=== PATIENT | female | born 1985 | race Caucasian/White ===

== ENCOUNTER 2020-09-26 17:50 | Emergency (ER) | payer OTHER, SELFPAY ==
[2020-09-26 18:05] VITALS: BP 151/74; PULSE 81; RESP 18; TEMP 36.2; O2SAT 98; BMI 28.3
--- NOTE | 2020-09-26 19:03 | US_ITS ---
EXAMINATION: NONINVASIVE ASSESSMENT OF THE ARTERIES OF THE LEFT LOWER EXTREMITY Jaret Corley MD CLINICAL INFORMATION: Left lower extremity pain, numbness and diminished pulses TECHNIQUE: Left lower extremity duplex ultrasound was performed with velocity measurements and waveform analysis in the common femoral arteries, profunda femoris arteries, proximal mid and distal superficial femoral arteries, popliteal arteries and tibial vessels. This study was performed only at rest. COMPARISON: None FINDINGS: Velocities in cm/sec and phasicity as well as the presence of plaque are reported below. LEFT LEG: Minimal plaque is present. Triphasic flow is noted throughout. Common Femoral: 196 Profunda Femoris: 145 Proximal SFA: 152 Mid SFA: 157 Distal SFA: 77 Popliteal: 65 Posterior tibial: 77 Peroneal: 73 US/US arterial duplex LE LT IMPRESSION: There is no evidence of any hemodynamically significant left lower extremity arterial disease by pressure, waveform or duplex Doppler criteria at rest.
--- NOTE | 2020-09-26 19:04 | XR_ITS ---
EXAMINATION: XR ANKLE, LEFT CLINICAL INFORMATION: Pain. COMPARISON: None TECHNIQUE: AP, lateral, and mortise views of the left ankle. FINDINGS: The bones and soft tissues are normal. No fracture. Alignment is anatomic. Joint spaces are maintained. No joint effusion. XR/XR ankle LT min 3V IMPRESSION: Normal left ankle.
[2020-09-26 19:54] LABS: MANUAL DIFF FLAG NO
[2020-09-26 19:56] LABS: Glucose Urine UA NEG (NEG); Leukocyte Esterase Urine NEG (NEG); Nitrite Urine NEG (NEG); Specific Gravity - Urine 1.025 (1.005-1.025); Urine Blood NEG (NEG); Urine Ketones NEG (NEG); Urine Protein NEG (NEG-TRACE)
[2020-09-26 19:58] LABS: Appearance Urine CLEAR; Color Urine YELLOW
[2020-09-26 19:59] LABS: UPreg QC Valid YES; Urine Pregnancy NEGATIVE (NEGATIVE)
[2020-09-26 20:04] LABS: Basophils Percent Auto 0.5 % (0-2); Eosinophils Absolute Auto 0.2 X10*3/uL (0.0-0.4); Eosinophils Percent Auto 2.4 % (0-4); Hematocrit 41.4 % (37-47); Hemoglobin 14.2 g/dl (12.0-16.0); Imm Gran Abs Auto 0.03 X10*3/uL (0.00-0.03); Imm Gran Pct Auto 0.4 % (0.0-0.4); Lymphocytes Absolute Auto 2.6 X10*3/uL (1.2-4.9); Lymphocytes Percent Auto 31.7 % (20-40); Mean Corpuscular HGB Conc 34.3 g/dl (31.0-35.0); Mean Corpuscular Hemoglobin 29.8 pg (27.0-33.0); Mean Platelet Volume 9.3 fL (9.4-12.3); Monocytes Absolute Auto 0.8 X10*3/uL (0.1-1.2); Monocytes Percent Auto 9.8 % (2-11); Neutrophils Absolute Auto 4.5 X10*3/uL (2.0-8.3); Neutrophils Percent Auto 55.2 % (45-73); Platelet Count 257 X10*3/uL (160-400); Red Blood Count 4.76 X10*6/uL (4.20-5.50); Red Cell Distribution Width 12.7 % (11.0-16.0); White Blood Count 8.2 X10*3/uL (4.8-10.8)
[2020-09-26 20:06] LABS: Bacteria Urine 1+ /LPF; Squamous Epithelial Cell Urine 1+ /LPF
[2020-09-26 20:14] LABS: Alanine Aminotransferase 12 U/L (0-31); Albumin Level 4.4 g/dL (3.5-5.0); Alkaline Phosphatase 85 U/L (39-117); Anion Gap 12 (12-20); Aspartate Amino Transferase 15 U/L (5-31); Bilirubin Total 0.2 mg/dL (0.0-1.0); Blood Urea Nitrogen 9 mg/dL (9-16); Calcium 9.3 mg/dL (8.4-10.2); Carbon Dioxide 27 mmol/L (22-29); Chloride 104 mmol/L (96-108); Creatinine Clr Calc Pharmacy 81.2; Estimated Glomerular Filt Rate > 60; Glucose Random 90 mg/dL (60-115); Potassium 4.1 mmol/l (3.3-5.1); Sodium 139 mmol/L (135-145); Total Protein 7.5 g/dL (6.5-8.0)
[2020-09-26 20:38] LABS: Amphetamine Screen Urine Not Detected (Not Detect); Barbiturates, Urine Not Detected (Not Detect); Benzodiazepines Screen Urine Not Detected (Not Detect); Cannabinoid Screen Urine POSITIVE (Not Detect); Cocaine Screen Urine POSITIVE (Not Detect); Opiate Screen Urine POSITIVE (Not Detect); Phencyclidine Screen Urine Not Detected (Not Detect)
--- NOTE | 2020-09-26 20:38 | ED_ITS ---
HPI - Extremity Injury (Lower) General Chief Complaint: Extremity Injury, Lower Stated Complaint: leg numbness Time Seen by Provider: 09/26/20 19:03 Source: patient Mode of arrival: ambulatory Limitations: no limitations History of Present Illness HPI Narrative: 35-year-old female with prior history of substance abuse preferred IV heroin states she has been sober for 2 weeks now from sober house presenting with complaint of left lower extremity numbness/pain. States new 's [place] was her birthday she was upstairs and hit the front of the foot and fell causing injury to the ankle and that was a short-lived pain that resolve. has been having some numbness shooting down from the anterior knee area down foot. Place: home Severity: mild Exacerbating factors: nothing Other symptoms: none Related Data Allergies Allergy/AdvReac Type Severity Reaction Status Date / Time amoxicillin [AMOXICILLIN] Allergy Unknown RASH Verified 09/26/20 18:04 penicillin Allergy Unknown rash Uncoded 03/06/16 00:00 Review of Systems Review of Systems: Constitutional: No Weight loss, No Fever, No Chills, No Night Sweats, No Fatigue, No Malaise ENT/Mouth: No Hearing loss, No Ear Pain, No Nasal Congestion, No Sinus Pain, No Hoarseness, No sore throat, No Rhinorrhea, No Swallowing Difficulty Eyes: No Eye Pain, No Swelling, No Redness, No Foreign Body, No Discharge, No Vision Changes Cardiovascular: No Chest Pain, No SOB, No Dyspnea on Exertion, No Orthopnea, No Edema, No Palpitations Respiratory: No Cough, No Sputum, No Wheezing, No Smoke Exposure, No Dyspnea Gastrointestinal: No Nausea, No Vomiting, No Diarrhea, No Constipation, No abdominal Pain, No Hematochezia, No Melena Genitourinary: no irregular bleeding, No Dysuria, No Urinary Frequency, No Hematuria, No Urinary Incontinence, No Urgency, No Flank Pain, No Urinary Flow Changes, No Hesitancy Musculoskeletal: No joint pain, No Myalgias, No Joint Swelling Skin: No Skin Lesions, No rash Neuro: No Weakness, No Paresthesias, No Loss of Consciousness, No Dizziness, No Headache Psych: No Social Issues Heme/Lymph: No Bruising, No Bleeding,No Lymphadenopathy Endocrine: No Polyuria, No Polydipsia, No Temperature Intolerance Yes all other systems are reviewed and are negative [facility] Past Medical History Medical History (Updated 09/27/20 @ 00:01 by Background Dadhara) Heroin abuse Social History Social History Alcohol intake: never Smoking Status: Never smoker Use of substances other than those prescribed or required for medical reasons: No Advance Directives: No Advance Directives Information Provided: Yes Physical Exam Vital Signs: Vital Signs: Last Vital Signs Temp 97.2 F 09/26/20 18:05 Pulse 81 09/26/20 18:05 Resp 18 09/26/20 18:05 BP 151/74 H 09/26/20 18:05 Pulse Ox 98 09/26/20 18:05 Body Mass Index 28.3 Reviewed Const: General: cooperative and healthy appearing; No acute distress or intoxicated appearing Nutritional Appearance: average body habitus Orientation/consciousness: patient oriented x3 HENMT: Head: Yes normal to inspection Eyes: General: appearance normal, both eyes and all related structures Visual Mccabe: normal visual mccabe by confrontation Neck: Neck: Yes normal visual inspection, No positive Brudzinski's sign, No positive Kernig's sign and No tender Thyroid: Thyroid normal Chest: Chest palpation & inspection: normal inspection of the chest Resp: Effort & Inspection: normal respiratory effort Auscultation: clear to auscultation bilaterally Cardio: Jugular venous distension: no JVD Rhythm: regular rhythm Heart sounds: S1 normal heart sound present and S2 normal heart sound present GI: Inspection: Yes normal to inspection Percussion: Yes normal to percussion Auscultation: normal bowel sounds : General: Yes no CVA tenderness Back/Spine/Pelvis: Back: no CVA tenderness Skin: General skin exam: no rashes or lesions noted Neuro: General: patient oriented x3 Extrem: Other: As old healed IV track schuler in the bilateral upper and lower extremities. Left lower extremity pulse slightly harder this is likely secondary to the vascular changes from IVDA use. General: Yes normal to inspection Course Course Course Narrative: Labs overall stable. X-ray without evidence of fracture ultrasound arterial within normal limits. She did express concern that her mother has history of MS and she developed this and her early 40s she is concerned about this. States her mother had more significant symptoms more consistent with MS. She denies any other symptoms aside from the left lower extremity numbness from the knee down only in the setting of recent injury. Given this is very atypical and a recent injury my suspicions for MS or low but given patient's concern will refer to Neurology for outpatient workup if symptoms continue. MDM - Extremity Injury (Lower) Lab Data Attestation: I reviewed the patient's lab results. Result diagrams: 09/26/20 19:46 09/26/20 19:46 Labs: Lab Results 09/26/20 09/26/20 09/26/20 Range/Units 19:46 19:46 19:47 WBC 8.2 (4.8-10.8) X10*3/uL RBC 4.76 (4.20-5.50) X10*6/uL Hgb 14.2 (12.0-16.0) g/dl Hct 41.4 (37-47) % MCV 87.0 (80-98) fL MCH 29.8 (27.0-33.0) pg MCHC 34.3 (31.0-35.0) g/dl RDW 12.7 (11.0-16.0) % Plt Count 257 (160-400) X10*3/uL MPV 9.3 L (9.4-12.3) fL Immature Gran % (Auto) 0.4 (0.0-0.4) % Neut % (Auto) 55.2 (45-73) % Lymph % (Auto) 31.7 (20-40) % [place] % (Auto) 9.8 (2-11) % Eos % (Auto) 2.4 (0-4) % Baso % (Auto) 0.5 (0-2) % Lymph # (Auto) 2.6 (1.2-4.9) X10*3/uL [place] # (Auto) 0.8 (0.1-1.2) X10*3/uL Eos # (Auto) 0.2 (0.0-0.4) X10*3/uL Baso # (Auto) 0.0 (0.0-0.2) X10*3/uL Abs Immat Gran (auto) 0.03 (0.00-0.03) X10*3/uL Absolute Neuts (auto) 4.5 (2.0-8.3) X10*3/uL Absolute Nucleated RBC 0.000 (0.0-0.012) X10*3/uL Nucleated RBC % (auto) 0.0 (0.0-0.2) /100WBC Sodium 139 (135-145) mmol/L Potassium 4.1 (3.3-5.1) mmol/l Chloride 104 (96-108) mmol/L Carbon Dioxide 27 (22-29) mmol/L Anion Gap 12 (12-20) BUN 9 (9-16) mg/dL Creatinine 0.94 (0.5-1.4) mg/dL Estim Creat Clear Calc 81.2 Estimated GFR > 60 Random Glucose 90 (60-115) mg/dL Calcium 9.3 (8.4-10.2) mg/dL Total Bilirubin 0.2 (0.0-1.0) mg/dL AST 15 (5-31) U/L ALT 12 (0-31) U/L Alkaline Phosphatase 85 (39-117) U/L Total Protein 7.5 (6.5-8.0) g/dL Albumin 4.4 (3.5-5.0) g/dL Urine Color YELLOW Urine Appearance CLEAR Urine pH 7.0 (5.0-8.0) Ur Specific [place] 1.025 (1.005-1.025) Urine Protein NEG (NEG-TRACE) MG/DL Urine Glucose (UA) NEG (NEG) MG/DL Urine Ketones NEG (NEG) MG/DL Urine Blood NEG (NEG) Urine Nitrite NEG (NEG) Ur Leukocyte Esterase NEG (NEG) Urine RBC 1-4 (0) /HPF Urine WBC 1-4 (0-4) /HPF Ur Squamous Epith Cells 1+ /LPF Urine Bacteria 1+ /LPF Urine Test NEGATIVE (NEGATIVE) Urine Opiates Screen (Not Detect) Ur Barbiturates Screen (Not Detect) Ur Phencyclidine Scrn (Not Detect) Ur Amphetamines Screen (Not Detect) U Benzodiazepines Scrn (Not Detect) Urine Cocaine Screen (Not Detect) U Marijuana (THC) Screen (Not Detect) 09/26/20 Range/Units 19:47 WBC (4.8-10.8) X10*3/uL RBC (4.20-5.50) X10*6/uL Hgb (12.0-16.0) g/dl Hct (37-47) % MCV (80-98) fL MCH (27.0-33.0) pg MCHC (31.0-35.0) g/dl RDW (11.0-16.0) % Plt Count (160-400) X10*3/uL MPV (9.4-12.3) fL Immature Gran % (Auto) (0.0-0.4) % Neut % (Auto) (45-73) % Lymph % (Auto) (20-40) % [place] % (Auto) (2-11) % Eos % (Auto) (0-4) % Baso % (Auto) (0-2) % Lymph # (Auto) (1.2-4.9) X10*3/uL [place] # (Auto) (0.1-1.2) X10*3/uL Eos # (Auto) (0.0-0.4) X10*3/uL Baso # (Auto) (0.0-0.2) X10*3/uL Abs Immat Gran (auto) (0.00-0.03) X10*3/uL Absolute Neuts (auto) (2.0-8.3) X10*3/uL Absolute Nucleated RBC (0.0-0.012) X10*3/uL Nucleated RBC % (auto) (0.0-0.2) /100WBC Sodium (135-145) mmol/L Potassium (3.3-5.1) mmol/l Chloride (96-108) mmol/L Carbon Dioxide (22-29) mmol/L Anion Gap (12-20) BUN (9-16) mg/dL Creatinine (0.5-1.4) mg/dL Estim Creat Clear Calc Estimated GFR Random Glucose (60-115) mg/dL Calcium (8.4-10.2) mg/dL Total Bilirubin (0.0-1.0) mg/dL AST (5-31) U/L ALT (0-31) U/L Alkaline Phosphatase (39-117) U/L Total Protein (6.5-8.0) g/dL Albumin (3.5-5.0) g/dL Urine Color Urine Appearance Urine pH (5.0-8.0) Ur Specific [place] (1.005-1.025) Urine Protein (NEG-TRACE) MG/DL Urine Glucose (UA) (NEG) MG/DL Urine Ketones (NEG) MG/DL Urine Blood (NEG) Urine Nitrite (NEG) Ur Leukocyte Esterase (NEG) Urine RBC (0) /HPF Urine WBC (0-4) /HPF Ur Squamous Epith Cells /LPF Urine Bacteria /LPF Urine Test (NEGATIVE) Urine Opiates Screen POSITIVE H (Not Detect) Ur Barbiturates Screen Not Detected (Not Detect) Ur Phencyclidine Scrn Not Detected (Not Detect) Ur Amphetamines Screen Not Detected (Not Detect) U Benzodiazepines Scrn Not Detected (Not Detect) Urine Cocaine Screen POSITIVE H (Not Detect) U Marijuana (THC) Screen POSITIVE H (Not Detect) Imaging Data Duplex scan of left lower extremity artery: Radiologist's impression: [address] [address] XRay Report Signed Patient: Miriam Jackson#: [id number] : 1985Acct:[id number] Age/Sex: 35 / FADM Date: 09/26/20 Loc: HO.ED Attending Dr: Ordering Physician: Michael Villalobos NP Date of Service: 09/26/20 Procedure(s): XR ankle LT min 3V Accession Number(s): [id number] cc: Michael Villalobos GEOLOGICAL TECHNICAL OFFICER~ EXAMINATION: XR ANKLE, LEFT CLINICAL INFORMATION: Pain. COMPARISON: None TECHNIQUE: AP, lateral, and mortise views of the left ankle. FINDINGS: The bones and soft tissues are normal. No fracture. Alignment is anatomic. Joint spaces are maintained. No joint effusion. XR/XR ankle LT min 3V IMPRESSION: Normal left ankle. Dictated By:SHELDON LINN MD Signed By:<Electronically signed by SHELDON LINN MD in OV>09/26/201999 DD/ 03 TD/TT: Loan Approver: JUAN Left ankle x-ray: Radiologist's impression: [address] [address] XRay Report Signed Patient: Miriam Jackson#: [id number] : 1985Acct:[id number] Age/Sex: 35 / FADM Date: 09/26/20 Loc: .ED Attending Dr: Ordering Physician: Michael Villalobos GEOLOGICAL TECHNICAL OFFICER Date of Service: 09/26/20 Procedure(s): XR ankle LT min 3V Accession Number(s): [id number] cc: Michael Villalobos GEOLOGICAL TECHNICAL OFFICER~ EXAMINATION: XR ANKLE, LEFT CLINICAL INFORMATION: Pain. COMPARISON: None TECHNIQUE: AP, lateral, and mortise views of the left ankle. FINDINGS: The bones and soft tissues are normal. No fracture. Alignment is anatomic. Joint spaces are maintained. No joint effusion. XR/XR ankle LT min 3V IMPRESSION: Normal left ankle. Dictated By:SHELDON LINN MD Signed By:<Electronically signed by SHELDON LINN MD in OV>09/26/201999 DD/ 03 TD/TT: Loan Approver: JUAN Discharge Plan Discharge Clinical Impression: Left leg numbness Patient Disposition: Home, Self-Care Instructions: Paresthesia (ED) Additional Instructions: Your blood work as well as the x-ray of the ankle and ultrasound did not show any acute findings Follow-up with neurology for further evaluation and treatment Return if any concerns or worsening symptoms Thank you Referrals: Antonia Moura MD [Physician] - 1 week Interventions: ED Discharge Assessment Last Done: 09/26/20 21:08 Discharge Date/Time: 09/26/20 21:10
== END 2020-09-26 21:10 | disposition home or self-care (01) ==
PROVIDERS: Nurse Practitioner Primary Care; Emergency Provider Emergency Medicine
DX: R20.2 Paresthesia of skin (principal); M25.571 Pain in right ankle and joints of right foot; F11.10 Opioid abuse, uncomplicated
CPT/HCPCS: 36415; 73610; 80053; 80307; 81001; 81025; 85025; 93926; 99284

== ENCOUNTER 2021-03-05 14:23 | Outpatient (REF) | payer OTHER, SELFPAY ==
[2021-03-06 06:06] LABS: CT PCR NOT DETECTED (Not Detect.); NG PCR NOT DETECTED (Not Detect.)
[2021-03-06 09:45] LABS: BV Int Neg Control Negative (Negative); BV Int Pos Control Positive (Positive)
[2021-03-08 19:06] LABS: HPV mRNA E6/E7 Not Detected (Not Detected)
== END 2021-03-05 14:24 | disposition home or self-care (01) ==
LOC: HO.LAB 14:23
PROVIDERS: Visit Provider Advanced Practice Midwife
DX: Z01.411 Encounter for gynecological examination (general) (routine) with abnormal findings (principal); Z11.3 Encounter for screening for infections with a predominantly sexual mode of transmission; N87.0 Mild cervical dysplasia; Z20.2 Contact with and (suspected) exposure to infections with a predominantly sexual mode of transmission; F19.11 Other psychoactive substance abuse, in remission; Z86.19 Personal history of other infectious and parasitic diseases; Z87.42 Personal history of other diseases of the female genital tract; Z72.0 Tobacco use
CPT/HCPCS: 87480; 87491; 87510; 87591; 87624; 87660; 88142

== ENCOUNTER 2023-11-14 14:23 | Emergency (ER) | payer MEDICAID, SELFPAY ==
--- NOTE | ~2023-11-14 | CT_ITS ---
EXAMINATION: CT HEAD WITHOUT CONTRAST CLINICAL INFORMATION: Mental status change COMPARISON: None available. TECHNIQUE: Contiguous axial imaging was performed from the skull base to vertex without intravenous administration of contrast. This CT examination was performed using dose optimization techniques as appropriate, variously including the following: *Automated exposure control *Adjustment of mA and/or kV according to patient size (this includes techniques or standardized protocols for targeted exams where dose is matched to indication/reason for exam; i.e. extremities or head) *Use of iterative reconstruction technique DLP: 601 mGy-cm FINDINGS: There is no evidence for an extra-axial collection. There is no evidence for intra-or extra-axial hemorrhage. The ventricles and extra-axial CSF spaces are appropriate. Adkins-white matter differentiation is normal. No mass, mass effect or infarct is seen. Review of bone windows is normal. Mild inflammatory change in the sphenoid sinus. CT/CT head/brain wo IV con IMPRESSION: No acute intracranial pathology.
--- NOTE | ~2023-11-14 | XR_ITS ---
EXAMINATION: XR CHEST CLINICAL INFORMATION: Shortness of breath COMPARISON: None available. TECHNIQUE: Frontal view of the chest was obtained. FINDINGS: No significant abnormality is noted involving the heart, lungs, mediastinum, bony thorax or soft tissues. XR/XR chest 1V IMPRESSION: Unremarkable examination.
--- NOTE | ~2023-11-14 | CT_ITS ---
EXAMINATION: CT ABDOMEN AND PELVIS WITH CONTRAST CLINICAL INFORMATION: Lower abdominal pain COMPARISON: None available. TECHNIQUE: Multidetector volumetric images were obtained from the superior aspect of the liver through the pubic symphysis following administration 85 mL of Omnipaque 350 intravenous contrast. Sagittal and coronal reformatted images were obtained on the technologist's workstation. Oral contrast: Yes This CT examination was performed using dose optimization techniques as appropriate, variously including the following: *Automated exposure control *Adjustment of mA and/or kV according to patient size (this includes techniques or standardized protocols for targeted exams where dose is matched to indication/reason for exam; i.e. extremities or head) *Use of iterative reconstruction technique DLP: 1000 mGy-cm FINDINGS: LUNG BASES: Lung bases are clear. Bilateral breast implants. The right breast rupture. LIVER, GALLBLADDER, AND BILIARY TREE: The liver is normal in size, shape, and attenuation. No focal hepatic lesion or biliary ductal dilatation is present. The gallbladder is unremarkable with no evidence of radiopaque gallstones, gallbladder wall thickening, or obvious pericholecystic inflammatory changes. PANCREAS: Unremarkable. SPLEEN: Unremarkable. ADRENAL GLANDS: Unremarkable. KIDNEYS AND URETERS: The kidneys are normal in size, shape, and attenuation. No hydronephrosis, hydroureter, or calculi seen. No perinephric stranding. BLADDER: Bladder is GASTROINTESTINAL TRACT: Severe constipation. Small and large bowel is normal.. No inflammatory changes in the lower quadrant. ABDOMINAL WALL: No significant hernia is appreciated. LYMPH NODES: Small retroperitoneal lymph nodes. No enlarged lymph nodes. VASCULAR: Unremarkable. PELVIC VISCERA: Unremarkable. Small OSSEOUS STRUCTURES: Unremarkable. CT/CT abdomen pelvis w IV con IMPRESSION: Limited due to Severe constipation. Very full bladder. Fleischner guidelines were followed.
[2023-11-14 14:51] VITALS: BP 111/70; BP 118/74; PULSE 78; PULSE 83; RESP 16; TEMP 36.1; O2SAT 94; O2SAT 97; BMI 25.7
--- NOTE | 2023-11-14 15:03 | ECG_ITS ---
Test Reason : lethargy Blood Pressure : / mmHG Vent. Rate : 074 BPM Atrial Rate : 074 BPM P-R Int : 142 ms QRS Dur : 078 ms QT Int : 398 ms P-R-T Axes : 023 020 009 degrees QTc Int : 441 ms Normal sinus rhythm Nonspecific T wave abnormality Abnormal ECG No previous ECGs available Referred By: Paula Michel Electronically Signed By:MOMO LAGUNAS MD
--- NOTE | 2023-11-14 15:14 | ED_ITS ---
HPI - General Adult General Chief complaint: General Medical Stated complaint: FEELING UNWELL Time Seen by Provider: 11/14/23 14:55 History of Present Illness HPI narrative: 38 y/o F patient (PMH substance abuse with IV heroin on methadone), pulmonary embolism on Eliquis; presents from mental health facility with report of AMS and hypoxia (88 - 90%). The patient states she has been feeling unwell for several weeks. She endorses constipation and feeling of urinary retention. She endorses one episode of nausea/vomiting. She endorses frontal headache. She denies back pain, chest pain, fever, cough/congestion. The patient is AOx4 on exam - she reports she is sleepy as her symptoms have been keeping her awake. Patient denies overdose of her medications. Related Data Home Medications Medication Instructions Recorded Confirmed methadone 40 mg soluble tablet 40 mg PO DAILY 03/05/21 03/05/21 Previous Rx's Medication Instructions Recorded nicotine 14 mg/24 hr daily 1 patch transdermal Q24H #14 ea 03/05/21 transdermal patch valacyclovir 500 mg tablet 500 mg PO BID #6 tabs 03/05/21 magnesium citrate (OneLAX 300 ml PO ONCE 1 day #296 mL 11/14/23 Magnesium Citrate oral solution) Allergies Allergy/AdvReac Type Severity Reaction Status Date / Time amoxicillin [AMOXICILLIN] Allergy Unknown RASH Verified 03/05/21 14:35 penicillin Allergy Unknown rash Uncoded 03/05/21 14:35 Review of Systems 2 Review of Systems: Yes all other systems are reviewed and are negative Neurologic: Denies Abnormal speech present and Denies Sensory deficit (Neuro) PMFSH Past Medical History Attestation statement: The following information was validated with the patient. Source: old records reviewed Medical History SUDARSHAN I (cervical intraepithelial neoplasia I) Herpes genitalia On pre-exposure prophylaxis for HIV Abnormal vaginal Pap smear Heroin abuse Surgical History H/O breast implant History of loop electrical excision procedure (LEEP) Hx of abdominoplasty Social History Social History Unable to assess alcohol history related to: Unknown Alcohol intake: never Patient Tobacco Use Status: Former Tobacco user Use of substances other than those prescribed or required for medical reasons: Unknown Advance Directives: No Advance Directives Information Provided: No Gender identity: Female Physical Exam ED Vital Signs: Vital Signs - 24 hr 11/14/23 14:51 11/14/23 17:38 11/14/23 19:09 Temperature 97 F 97.6 F Pulse Rate 83 73 64 Respiratory Rate 16 12 16 Blood Pressure 111/70 108/66 102/54 L Pulse Oximetry 94 98 96 Oxygen Delivery Method Room Air Room Air Room Air BMI result Body Mass Index 25.7 Patient is afebrile and hemodynamically stable. Const General: cooperative, alert, awake and Physically active Orientation/consciousness: patient oriented x3 HENMT Head: Yes normal to inspection and Yes atraumatic Eyes General: appearance normal, both eyes and all related structures Pupils: Equal, round and reactive pupils present EOM: EOMs intact bilaterally Neck Neck: Yes normal visual inspection, Yes full ROM, Yes supple and No tender Chest Chest palpation & inspection: normal inspection of the chest and normal palpation of entire chest wall Resp Effort & Inspection: normal respiratory effort, no cough and no respiratory distress Auscultation: clear to auscultation bilaterally Cardio Rate: regular rate Rhythm: regular rhythm Peripheral pulses: Peripheral pulses 2+ throughout GI Other: Lower quadrants and suprapubic fullness Inspection: Yes normal to inspection, No Abdominal wall edema and Yes distended Palpation (GI): Firmness to palpation present (GI), nontender, no guarding and not rigid General: Yes no CVA tenderness Back/Spine/Pelvis Back: no CVA tenderness and No back tenderness Cervical Spine: No Cervical spine tenderness Thoracic/Lumbar Spine: No thoracic spinal tenderness and No lumbar spinal tenderness Neuro General: patient oriented x3 Cranial nerves: Yes Equal, round and reactive pupils present Cognition (Neuro): normal cognition Speech: No Abnormal speech present Gait exam (Neuro): Normal gait present Motor exam (neuro): 5/5 motor strength present throughout, Pronator motor function not present and Other motor observations present (No clonus) Sensory Exam: No Sensory deficit (Neuro) Course Course Course Narrative: Patient is afebrile and hemodynamically stable. Pertinent issues: 1) Lethargy with frontal headache, abdominal pain with constipation and ? urinary retention -Will obtain bladder scan -Will obtain CT Abdomen/Pelvis w IV Contrast and CT Head -Will obtain CXR, respiratory swab, inflammatory markers Reevaluation(s) Reevaluation #1: COVID/FLU/RSV negative. Laboratory studies unremarkable: Negative CRP and ESR No leukocytosis CXR unremarkable. Time: 16:48 Reevaluation #2: CT Abdomen/Pelvis with severe constipation and very full bladder. Patient had urinated just prior to CT scan. Will start bowel prep in the emergency department with glycerin suppository, soap suds enema, and lactulose PO. Patient will need to continue bowel prep at discharge with mag citrate at home. Patient went with nurse to bathroom prior to bowel prep. Had solid bowel movement as well as urinated a significant amount. Post-void bladder scan with 0mL present. Patient is tolerating PO without difficulty. She is awake, alert, oriented without difficulty. Plan: Discharge to home with PCP follow up Return precautions given Rx MagCitrate sent to pharmacy Medications Administered Discontinued Medications Generic Name Dose Route Start Last Admin Trade Name Freq PRN Reason Stop Dose Admin Glycerin 1 supp 11/14/23 18:57 11/14/23 19:44 Glycerin Adult Supp.Rect DC 11/14/23 18:58 1 supp ONCE ONE Administration Sodium Chloride 1,000 mls @ 999 mls/hr 11/14/23 15:30 11/14/23 18:05 Ns IV 11/14/23 16:30 999 mls/hr .Q1H1M SAVANNAH Administration Iohexol 100 ml 11/14/23 17:57 11/14/23 17:58 Iohexol 350 Mg/Ml 100 Ml Infus..Btl IV 11/14/23 17:58 85 ml ONCE ONE Administration Lactulose 20 gm 11/14/23 19:13 11/14/23 19:45 Lactulose 20 Gm/30 Ml Solution PO 11/14/23 19:14 20 gm ONCE ONE Administration Procedures EJ/Peripheral Line Arm L: Time Out Performed: Yes Skin Cleansed in Sterile Fashion: Yes Size (gauge): 20 IV Secured and Dressing Applied: Yes Patient Tolerated Procedure: well and no complications Medical Decision Making Lab Data 11/14/23 15:59 11/14/23 15:48 Labs: Lab Results 11/14/23 11/14/23 11/14/23 Range/Units 15:35 15:48 15:50 WBC (4.8-10.8) X10*3/uL RBC (4.20-5.50) X10*6/uL Hgb (12.0-16.0) g/dl Hct (37.0-47.0) % MCV (80.0-98.0) fL MCH (27.0-33.0) pg MCHC (31.0-35.0) g/dl RDW (11.0-16.0) % Plt Count (160-400) X10*3/uL MPV (9.4-12.3) fL Immature Gran % (Auto) (0.0-0.4) % Neut % (Auto) (45-73) % Lymph % (Auto) (20-40) % [place] % (Auto) (2-11) % Eos % (Auto) (0-4) % Baso % (Auto) (0-2) % Lymph # (Auto) (1.2-4.9) X10*3/uL [place] # (Auto) (0.1-1.2) X10*3/uL Eos # (Auto) (0.0-0.4) X10*3/uL Baso # (Auto) (0.0-0.2) X10*3/uL Abs Immat Gran (auto) (0.00-0.03) X10*3/uL Absolute Neuts (auto) (2.0-8.3) x10*3/uL Absolute Nucleated RBC (0.0-0.012) X10*3/uL Nucleated RBC % (auto) (0.0-0.2) /100WBC ESR 6 (0-20) MM/HR Sodium 142 (135-145) mmol/L Potassium 3.9 (3.3-5.1) mmol/L Chloride 107 (96-108) mmol/L Carbon Dioxide 27 (22-29) mmol/L Anion Gap 12 (12-20) BUN 10 (9-16) mg/dL Creatinine 0.75 (0.5-1.4) mg/dL Estim Creat Clear Calc 94.4 Estimated GFR > 60 Random Glucose 90 (60-115) mg/dL Calcium 8.9 (8.4-10.2) mg/dL Total Bilirubin 0.2 (0.0-1.0) mg/dL Direct Bilirubin < 0.2 (0.0-0.5) mg/dL AST 9 (5-31) U/L ALT 9 (0-31) U/L Alkaline Phosphatase 73 (39-117) U/L Troponin I High Sens < 2.7 (<3.5-17.0) ng/L C-Reactive Protein 0.36 (< or = 0.50) mg/dL Total Protein 6.0 L (6.5-8.0) g/dL Albumin 3.5 (3.5-5.0) g/dL Lipase 16 (8-78) U/L Beta HCG, Quant < 2 mIU/mL Urine Color Urine Appearance Urine pH (5.0-9.0) Ur Specific Sullivan (1.005-1.025) Urine Protein (Neg-Trace) mg/dL Urine Glucose (UA) (Negative) mg/dL Urine Ketones (Negative) mg/dL Urine Blood (Negative) Urine Nitrite (Negative) Ur Leukocyte Esterase (Negative) Salicylates < 5.0 L (15-30) mg/dL Urine Opiates Screen (Not Detect) Urine Fentanyl Screen (Not Detect) Acetaminophen 3 (<30) mcg/mL Ur Barbiturates Screen (Not Detect) Ur Phencyclidine Scrn (Not Detect) Ur Amphetamines Screen (Not Detect) U Benzodiazepines Scrn (Not Detect) Urine Cocaine Screen (Not Detect) U Marijuana (THC) Screen (Not Detect) Ethyl Alcohol < 10 mg/dL Influenza Type A (PCR) NEGATIVE (Negative) Influenza Type B (PCR) NEGATIVE (Negative) RSV RNA Qual (PCR) NEGATIVE (Negative) SARS-CoV-2 RNA (RT-PCR) NEGATIVE (Negative) 11/14/23 11/14/23 11/14/23 Range/Units 15:59 16:57 18:27 WBC 9.2 (4.8-10.8) X10*3/uL RBC 4.75 (4.20-5.50) X10*6/uL Hgb 14.1 (12.0-16.0) g/dl Hct 42.4 (37.0-47.0) % MCV 89.3 (80.0-98.0) fL MCH 29.7 (27.0-33.0) pg MCHC 33.3 (31.0-35.0) g/dl RDW 12.9 (11.0-16.0) % Plt Count 188 (160-400) X10*3/uL MPV 9.4 (9.4-12.3) fL Immature Gran % (Auto) 0.5 H (0.0-0.4) % Neut % (Auto) 44.5 L (45-73) % Lymph % (Auto) 33.3 (20-40) % [place] % (Auto) 12.9 H (2-11) % Eos % (Auto) 8.0 H (0-4) % Baso % (Auto) 0.8 (0-2) % Lymph # (Auto) 3.1 (1.2-4.9) X10*3/uL [place] # (Auto) 1.2 (0.1-1.2) X10*3/uL Eos # (Auto) 0.7 H (0.0-0.4) X10*3/uL Baso # (Auto) 0.1 (0.0-0.2) X10*3/uL Abs Immat Gran (auto) 0.05 H (0.00-0.03) X10*3/uL Absolute Neuts (auto) 4.1 (2.0-8.3) x10*3/uL Absolute Nucleated RBC 0.000 (0.0-0.012) X10*3/uL Nucleated RBC % (auto) 0.0 (0.0-0.2) /100WBC ESR (0-20) MM/HR Sodium (135-145) mmol/L Potassium (3.3-5.1) mmol/L Chloride (96-108) mmol/L Carbon Dioxide (22-29) mmol/L Anion Gap (12-20) BUN (9-16) mg/dL Creatinine (0.5-1.4) mg/dL Estim Creat Clear Calc Estimated GFR Random Glucose (60-115) mg/dL Calcium (8.4-10.2) mg/dL Total Bilirubin (0.0-1.0) mg/dL Direct Bilirubin (0.0-0.5) mg/dL AST (5-31) U/L ALT (0-31) U/L Alkaline Phosphatase (39-117) U/L Troponin I High Sens (<3.5-17.0) ng/L C-Reactive Protein (< or = 0.50) mg/dL Total Protein (6.5-8.0) g/dL Albumin (3.5-5.0) g/dL Lipase (8-78) U/L Beta HCG, Quant mIU/mL Urine Color Yellow Urine Appearance Cloudy Urine pH 6.0 (5.0-9.0) Ur Specific Sullivan 1.020 (1.005-1.025) Urine Protein Negative (Neg-Trace) mg/dL Urine Glucose (UA) Negative (Negative) mg/dL Urine Ketones Negative (Negative) mg/dL Urine Blood Negative (Negative) Urine Nitrite Negative (Negative) Ur Leukocyte Esterase Negative (Negative) Salicylates (15-30) mg/dL Urine Opiates Screen Not Detected (Not Detect) Urine Fentanyl Screen POSITIVE H (Not Detect) Acetaminophen (<30) mcg/mL Ur Barbiturates Screen Not Detected (Not Detect) Ur Phencyclidine Scrn Not Detected (Not Detect) Ur Amphetamines Screen Not Detected (Not Detect) U Benzodiazepines Scrn POSITIVE H (Not Detect) Urine Cocaine Screen Not Detected (Not Detect) U Marijuana (THC) Screen Not Detected (Not Detect) Ethyl Alcohol mg/dL Influenza Type A (PCR) (Negative) Influenza Type B (PCR) (Negative) RSV RNA Qual (PCR) (Negative) SARS-CoV-2 RNA (RT-PCR) (Negative) Independent Interpretation I performed an independent interpretation of an: EKG Interpretation: NSR 74BPM without ischemic changes, normal intervals - no prior for comparison. Radiology Impression Discussion of test interpretation with radiology: I have reviewed the radiologist's reading. Radiologist Impression: EXAMINATION: XR CHEST CLINICAL INFORMATION: Shortness of breath COMPARISON: None available. TECHNIQUE: Frontal view of the chest was obtained. FINDINGS: No significant abnormality is noted involving the heart, lungs, mediastinum, bony thorax or soft tissues. XR/XR chest 1V IMPRESSION: Unremarkable examination. EXAMINATION: CT ABDOMEN AND PELVIS WITH CONTRAST CLINICAL INFORMATION: Lower abdominal pain COMPARISON: None available. TECHNIQUE: Multidetector volumetric images were obtained from the superior aspect of the liver through the pubic symphysis following administration 85 mL of Omnipaque 350 intravenous contrast. Sagittal and coronal reformatted images were obtained on the technologist's workstation. Oral contrast: Yes This CT examination was performed using dose optimization techniques as appropriate, variously including the following: *Automated exposure control *Adjustment of mA and/or kV according to patient size (this includes techniques or standardized protocols for targeted exams where dose is matched to indication/reason for exam; i.e. extremities or head) *Use of iterative reconstruction technique DLP: 1000 mGy-cm FINDINGS: LUNG BASES: Lung bases are clear. Bilateral breast implants. The right breast rupture. LIVER, GALLBLADDER, AND BILIARY TREE: The liver is normal in size, shape, and attenuation. No focal hepatic lesion or biliary ductal dilatation is present. The gallbladder is unremarkable with no evidence of radiopaque gallstones, gallbladder wall thickening, or obvious pericholecystic inflammatory changes. PANCREAS: Unremarkable. SPLEEN: Unremarkable. ADRENAL GLANDS: Unremarkable. KIDNEYS AND URETERS: The kidneys are normal in size, shape, and attenuation. No hydronephrosis, hydroureter, or calculi seen. No perinephric stranding. BLADDER: Bladder is GASTROINTESTINAL TRACT: Severe constipation. Small and large bowel is normal.. No inflammatory changes in the lower quadrant. ABDOMINAL WALL: No significant hernia is appreciated. LYMPH NODES: Small retroperitoneal lymph nodes. No enlarged lymph nodes. VASCULAR: Unremarkable. PELVIC VISCERA: Unremarkable. Small OSSEOUS STRUCTURES: Unremarkable. CT/CT abdomen pelvis w IV con IMPRESSION: Limited due to Severe constipation. Very full bladder. Fleischner guidelines were followed. Discharge Plan Discharge Clinical Impression: Constipation, Acute urinary retention, Opiate addiction Patient Disposition: Home, Self-Care Instructions: Constipation (DC) Additional Instructions: As we discussed, you were seen today for abdominal pain, urinary retention, and altered mental status. Your work up including CT Head and CT Abdomen/Pelvis only showed severe constipation with urinary retention. You were treated with a suppository and lactulose to help you have a bowel movement which you were able to do in the emergency department. You need to take 32oz gatorade and put the magcitrate into it to drink all at once. Repeat if you do not have a bowel movement within 6 hours of taking this. Then start taking over the counter miralax 1 capful every day. Follow up with your PCP within 1 week for re-evaluation. Return to the emergency department for: Fever Change in mental state Worsening abdominal pain Inability to pee Prescriptions: New magnesium citrate [OneLAX Magnesium Citrate] Solution 300 ml PO ONCE 1 Days Qty: 296 0RF No Action valacyclovir 500 mg tablet 500 mg PO BID Qty: 6 0RF Rx Instructions: for episodic outbreak nicotine 14 mg/24 hr patch 24 hour 1 patch transdermal Q24H Qty: 14 3RF methadone 40 mg tablet,soluble 40 mg PO DAILY
[2023-11-14 16:03] LABS: MANUAL DIFF FLAG NO
[2023-11-14 16:08] LABS: Basophils Absolute Auto 0.1 X10*3/uL (0.0-0.2); Basophils Percent Auto 0.8 % (0-2); Eosinophils Absolute Auto 0.7 X10*3/uL (0.0-0.4); Hematocrit 42.4 % (37.0-47.0); Hemoglobin 14.1 g/dl (12.0-16.0); Imm Gran Abs Auto 0.05 X10*3/uL (0.00-0.03); Imm Gran Pct Auto 0.5 % (0.0-0.4); Lymphocytes Absolute Auto 3.1 X10*3/uL (1.2-4.9); Lymphocytes Percent Auto 33.3 % (20-40); Mean Corpuscular HGB Conc 33.3 g/dl (31.0-35.0); Mean Corpuscular Hemoglobin 29.7 pg (27.0-33.0); Mean Corpuscular Volume 89.3 fL (80.0-98.0); Mean Platelet Volume 9.4 fL (9.4-12.3); Monocytes Absolute Auto 1.2 X10*3/uL (0.1-1.2); Monocytes Percent Auto 12.9 % (2-11); Neutrophils Absolute Auto 4.1 x10*3/uL (2.0-8.3); Neutrophils Percent Auto 44.5 % (45-73); Platelet Count 188 X10*3/uL (160-400); Red Blood Count 4.75 X10*6/uL (4.20-5.50); Red Cell Distribution Width 12.9 % (11.0-16.0); White Blood Count 9.2 X10*3/uL (4.8-10.8)
[2023-11-14 16:20] LABS: Acetaminophen LAB 3 mcg/mL (<30); Salicylate < 5.0 mg/dL (15-30)
[2023-11-14 16:23] LABS: Alanine Aminotransferase 9 U/L (0-31); Albumin Level 3.5 g/dL (3.5-5.0); Alkaline Phosphatase 73 U/L (39-117); Anion Gap 12 (12-20); Aspartate Amino Transferase 9 U/L (5-31); Bilirubin Direct < 0.2 mg/dL (0.0-0.5); Bilirubin Total 0.2 mg/dL (0.0-1.0); Blood Urea Nitrogen 10 mg/dL (9-16); C Reactive Protein 0.36 mg/dL (< or = 0.50); Calcium 8.9 mg/dL (8.4-10.2); Carbon Dioxide 27 mmol/L (22-29); Chloride 107 mmol/L (96-108); Creatinine Clr Calc Pharmacy 94.4; Estimated Glomerular Filt Rate > 60; Glucose Random 90 mg/dL (60-115); Lipase 16 U/L (8-78); Potassium 3.9 mmol/L (3.3-5.1); Sodium 142 mmol/L (135-145)
[2023-11-14 16:25] LABS: Ethanol < 10 mg/dL
[2023-11-14 16:28] LABS: Troponin-I High Sensitivity < 2.7 ng/L (<3.5-17.0)
[2023-11-14 16:30] LABS: HCG Quantitative < 2 mIU/mL
[2023-11-14 16:43] LABS: Influenza A PCR NEGATIVE (Negative); Influenza B PCR NEGATIVE (Negative); Resp Syncy Virus RNA Qual PCR NEGATIVE (Negative); SARS COV2 PCR INHOUSE NEGATIVE (Negative)
[2023-11-14 16:48] LABS: Erythrocyte Sedimentation Rate 6 MM/HR (0-20)
--- NOTE | 2023-11-14 17:01 | PC.NURSE ---
two nurses attempted IV placement, without success, MD Michel made aware need for IV placement
[2023-11-14 17:09] LABS: Amphetamine Screen Urine Not Detected (Not Detect); Barbiturates, Urine Not Detected (Not Detect); Benzodiazepines Screen Urine POSITIVE (Not Detect); Cannabinoid Screen Urine Not Detected (Not Detect); Cocaine Screen Urine Not Detected (Not Detect); Fentanyl, urine POSITIVE (Not Detect); Opiate Screen Urine Not Detected (Not Detect); Phencyclidine Screen Urine Not Detected (Not Detect)
[2023-11-14 17:38] VITALS: BP 108/66; PULSE 73; RESP 12; O2SAT 98
[2023-11-14] MEDS: iohexoL 350 MG/ML 100 ML INFUS..BTL IV (17:58)
[2023-11-14] MEDS: 0.9 % Sodium Chloride 1,000 ML 999 ML IV (18:05)
[2023-11-14 18:52] LABS: Appearance Urine Cloudy; Color Urine Yellow; Glucose Urine UA Negative (Negative); Leukocyte Esterase Urine Negative (Negative); Nitrite Urine Negative (Negative); Urine Blood Negative (Negative); Urine Ketones Negative (Negative); Urine Protein Negative (Neg-Trace)
[2023-11-14 19:09] VITALS: BP 102/54; PULSE 64; RESP 16; TEMP 36.4; O2SAT 96
--- NOTE | 2023-11-14 19:31 | PC.NURSE ---
Glycerin med not in the Pyxis. Pharmacy notified. Plan of care ongoing.
[2023-11-14] MEDS: Glycerin Adult SUPP.RECT 1 SUPP PR (19:44)
[2023-11-14] MEDS: Lactulose 20 GM/30 ML SOLUTION PO (19:45)
--- NOTE | 2023-11-14 19:48 | PC.NURSE ---
Pt medicated per nov. Pt requested and assisted to bedside commode. Plan of care ongoing.
[2023-11-14 21:50] VITALS: BP 142/71; PULSE 88; RESP 17; TEMP 36.9; O2SAT 99
--- NOTE | 2023-11-14 22:01 | PC.NURSE ---
This RN called Jorge Alberto Simms and gave report to nurse wooten. Report given to ems.
--- NOTE | 2023-11-14 22:03 | PC.NURSE ---
Pt ambulated to restroom with a steady gait. Plan of care ongoing.
[2023-11-16 04:01] LABS: HIV AB/AG Nonreactive (Nonreactive); HIV Num 1 0.08 S/CO (0.00-0.99)
== END 2023-11-14 22:03 | disposition home or self-care (01) ==
PROVIDERS: Emergency Provider Emergency Medicine
DX: K59.00 Constipation, unspecified (principal); R33.9 Retention of urine, unspecified; F11.20 Opioid dependence, uncomplicated; R09.02 Hypoxemia; Z11.52 Encounter for screening for COVID-19; Z20.828 Contact with and (suspected) exposure to other viral communicable diseases; Z86.711 Personal history of pulmonary embolism; Z79.01 Long term (current) use of anticoagulants; Z79.899 Other long term (current) drug therapy
CPT/HCPCS: 0241U; 36410; 36415; 51701; 51798; 70450; 71045; 74177; 80048; 80076; 80143; 80179; 80307; 81003; 83690; 84484; 84702; 85025; 85652; 86140; 87389; 93005; 99285; Q9967

== ENCOUNTER → 2023-11-14 15:03 | Outpatient (BNV) | payer MEDICAID, SELFPAY | PROVIDERS: Emergency Provider Emergency Medicine; Visit Provider Internal Medicine Cardiovascular Disease | DX: R94.31 Abnormal electrocardiogram [ECG] [EKG] (principal) | CPT/HCPCS: 93010 ==

== ENCOUNTER 2025-09-02 11:15 | Outpatient (REF) | payer MEDICAID, SELFPAY ==
[2025-09-02 12:23] LABS: Cannabinoid Screen Urine Not Detected (Not Detect)
== END 2025-09-02 11:16 | disposition home or self-care (01) ==
LOC: HO.PHPLNP 11:15
PROVIDERS: Visit Provider Psychiatry & Neurology Psychiatry
DX: F25.1 Schizoaffective disorder, depressive type (principal); F11.20 Opioid dependence, uncomplicated; F14.11 Cocaine abuse, in remission
CPT/HCPCS: 80307

== ENCOUNTER 2025-09-09 09:30 | Outpatient (RCR) | payer OTHER, SELFPAY ==
[2025-09-02 09:45] VITALS: BMI 33.7
[2025-09-02 09:46] VITALS: BP 90/62; PULSE 80; TEMP 37
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
--- NOTE | 2025-09-07 11:49 | PC.NURSE ---
Reviewed patient's positive BOOGIE for Fentanyl and Marijuana with patient. Patient stated she does not know why it came out positive as she has not used since she was hospitalized. Patient was adamant about this. I encouraged her to work on this in groups and let her know that we would test her again. She is also aware that [facility] clinician will be checking in with her in regards to the results and review treatment/relapse planning with her.
--- NOTE | 2025-09-07 12:48 | HO.PHP ---
[facility] staff member met with Ladonna during the first group to review her treatment plan and we also developed a relapse prevention plan. Ladonna stated warning signs that she might use is if the individual she lives with brings up the past, she finds it challenging to move forward, certain phone numbers/contacts, lighters because they remind her of smoking crack, and places [facility] in [place], [place]. People she could call for help if she is experiencing a craving is her mother, the person she lives with, her son and her uncle. Ladonna voiced things that she can do to get her mind off of using is take her dog for a walk, watch TV/Movies, Exercise, and Laundry/cleaning around the house. [facility] staff informed Ladonna that she will make a copy for her to have but she declined wanting the copy.
--- NOTE | 2025-09-07 12:55 | HO.PHP ---
[facility] nurse, Bina, came to [facility] staff members office asking for her to check in with Ladonna because she was dysregulated crying and banging her head on the wall. [facility] staff member went to meet with Ladonna to process what was occurring. Ladonna said she is tired of hearing the voices and screamed that she was schizophrenic. [facility] staff member attempted to explore what the voices were telling her to do. Ladonna expressed that they are telling her to not speak with the [facility] staff member. PHP staff member voiced that she needs to make sure she is safe and assessed for safety. Ladonna mentioned that she is safe and reported no concerns around SI, plan or intent. Ladonna said she would like some time alone and will return to group in a little. [facility] staff member was receptive and informed Ladonna that if she would like support to come get her. Ladonna appeared receptive.
[2025-09-08 12:05] LABS: Cannabinoid Screen Urine Not Detected (Not Detect)
--- NOTE | 2025-09-08 14:16 | HO.PHP ---
Clients case was opened and reviewed in teams.
--- NOTE | 2025-09-08 15:17 | HO.PHP ---
The [facility] team updated Dr. Guzman around Ladonna's presentation within the group setting, in which Dr. Guzman felt it would be best to have Ladonna go home for the day if she is unable to stay awake and have her return to program. When [facility] staff member went to meet with Ladonna, Ladonna asked if she feels she should leave for today because she is falling asleep and got no sleep last night. [facility] staff informed Ladonna that it would be best for her to go home and get rest and return to program tomorrow when she is well rested. PHP staff explored if there were any safety concerns and who would be picking her up. Ladonna reported no safety concerns around SI, plan or intent. Ladonna voiced that the male she lives with will be picking her up from the program. [facility] staff was receptive.
--- NOTE | 2025-09-09 23:21 | HO.PHPPROGNO ---
Subjective Subjective Date of Service: 09/09/25 Reason For Visit: schizoaffective d/o Interim History: Patient seen due to staff complaints. Patient continues to appear to be under the influence and has been falling asleep in groups, which has been disruptive to the group and distracting from patient care. Patient denies being tired although also was nodding off during our 15 min encounter. WHen told she would not be able to stay in the program due to falling asleep she pleads that she be allowed to stay due to jeopardizing her housing if she gets kicked out of program. He is given a chance to make some coffee and go walk around the hallway to help her wake-up. She understands she can not be falling asleep in groups any more and that this complromises her treatment as well as the treatment of other and jeopardizing her ablity to stay in the program. Also suggest her providers review her methadone dose which may be contributing. Mental Status Exam Mental Status Exam Narrative: Alert, oriented, in no acute distress. Calm, semi-cooperative due to sedation, redirectable. No psychomotor agitation or neurovegetative retardation. Eye contact maintained. Mood depressed, affect constricted. Speech normal. Thought process linear, coherent no FOI or REYNA. Thought content related to stressors, denies SI or HI. No paranoia or delusional content elicited. Insight and judgment - fair but adequate. Diagnostics Vital Signs (24Hr): BMI result Body Mass Index 33.7 Assessment & Plan Assessment & Plan (1) Polysubstance dependence including opioid type drug, continuous use, with perceptual disturbance: Status: Acute Code(s): F19.288 - Other psychoactive substance dependence with other psychoactive substance-induced disorder (2) PTSD (post-traumatic stress disorder): Status: Acute Code(s): F43.10 - Post-traumatic stress disorder, unspecified (3) Depression: Status: Acute Code(s): F32.A - Depression, unspecified Plan continue PHP continue regular medications Routine lab work as indicated EKG, routine for baseline QTc for medication considerations as indicated UDS as indicated MassPat reviewed Safety plan reviewed Continue to monitor Patient educated on: diagnosis, medication risk/benefits and substance abuse Informed Consent: understands Reason for contiued partial hosp. stay Substantial Risk for: inability to function and med/psych decompensation Certification I certify that partial hospital treatment is medically necessary due to the symptoms and problems resulting from the patient's mental illness and the failure to treat the patient at the partial hospital level of care would likely result in the patient requiring inpatient psychiatric care which could not be prevented at a less intensive level of care. Total time managing care of this patient today __15__ minutes. Discharge Plan Discharge Attending provider: Elba Guzman Medications: Continued clonazepam 0.5 mg Tablet,Disintegrating 0.5 mg PO BID@0900,1400 clonazepam 1 mg Tablet,Disintegrating 1 mg PO BEDTIME Rx Instructions: administer 30 minutes before bedtime sennosides [senna] 8.6 mg Tablet 17.2 mg PO BEDTIME Rx Instructions: Take 2 tabs at bedtime. hydroxyzine pamoate 50 mg Capsule 50 mg PO DAILY PRN (Reason: Anxiety) docusate sodium 100 mg Capsule 100 mg PO BID methadone [Methadone Intensol] 10 mg/mL Concentrate 140 mg PO DAILY fluoxetine 20 mg Capsule 20 mg PO DAILY valacyclovir 1 gram Tablet 1,000 mg PO BID trazodone 150 mg Tablet 150 mg PO BEDTIME Stand Alone Forms: Patient Portal Discharge page Print Language: Kiswahili
--- NOTE | 2025-09-14 09:42 | HO.PHP ---
called Ladonna twice, she answered the second time and reported that she would not be in attendance to program today. spoke with her about her attendance as she has missed three days this week due to my family being in town , promotion writer discussed discharge with her which she said was fine with me . asked to complete discharge over the phone but Ladonna was refusing to answer questions on the phone and someone in the background was being verbally aggressive asking for the phone to talk to those fucking people and Ladonna said that she was all set, did not need to answer questions and hung up the phone
== END 2025-09-09 23:59 | disposition home or self-care (01) ==
LOC: HO.PHPA 09:30
PROVIDERS: Visit Provider Psychiatry & Neurology Psychiatry
DX: F19.288 Other psychoactive substance dependence with other psychoactive substance-induced disorder (principal); F43.10 Post-traumatic stress disorder, unspecified; F32.A Depression, unspecified
CPT/HCPCS: 80307; 90791; 90853

== ENCOUNTER → 2025-09-09 09:30 | Outpatient (BNV) | payer OTHER, SELFPAY | PROVIDERS: Visit Provider Psychiatry & Neurology Psychiatry | DX: F33.1 Major depressive disorder, recurrent, moderate (principal); F19.288 Other psychoactive substance dependence with other psychoactive substance-induced disorder; F43.11 Post-traumatic stress disorder, acute | CPT/HCPCS: 99499 ==